=== PATIENT | male | born 1955 | race Caucasian/White ===

== ENCOUNTER → 2017-12-17 | Outpatient (REF) | payer MEDICARE, MEDICAID ==
[2017-12-17 16:23] LABS: URIC ACID 5.5 MG/DL (3.5-7.2)
== END ==
LOC: M LABDRAW1 13:52
DX: M17.12 Unilateral primary osteoarthritis, left knee (principal)
CPT/HCPCS: 84550

== ENCOUNTER → 2019-12-20 | Outpatient (REF) | payer MEDICARE, MEDICAID ==
[2019-12-20 14:29] LABS: APPEARANCE, URINE CLEAR (CLEAR); BACTERIA, URINE AUTO NEGATIVE (NEGATIVE); BILIRUBIN, URINE AUTO NEGATIVE (NEGATIVE); BLOOD, URINE BLOOD 1+ (NEGATIVE); COLOR, URINE YELLOW (YELLOW); GLUCOSE, URINE (UA) AUTO NEGATIVE (NEGATIVE); KETONE, URINE AUTO NEGATIVE (NEGATIVE); LEUKOCYTE ESTERASE, URINE AUTO NEGATIVE (NEGATIVE); MUCUS, URINE SMALL (NEGATIVE); NITRITE, URINE AUTO NEGATIVE (NEGATIVE); PROTEIN, URINE AUTO NEGATIVE (NEGATIVE); RBC, URINE AUTO 1 /HPF (0-3); SQUAMOUS EPITHELIAL CELL UR AU 0 /HPF (0-6); UROBILINOGEN, URINE AUTO 0.2 mg/dL (0.0-2.0); WBC, URINE AUTO 0 /HPF (0-3)
== END ==
LOC: M SMT 13:22
PROVIDERS: ATTEND Nurse Practitioner Women's Health
DX: R97.20 Elevated prostate specific antigen [PSA] (principal); Z79.899 Other long term (current) drug therapy
CPT/HCPCS: 81001; 87086; G0463

== ENCOUNTER → 2020-11-26 | Outpatient (CLI) | payer MEDICARE, MEDICAID ==
[~2020-11-26] MED LIST: DICL1GEL3 TOP; FLOM0.4C39 PO; GABA-845 PO; HYDR12.55 PO; LOSA25TA14 PO; METO37.5 PO; OXYC-1 PO; SIMV10TA21 PO; TRAZ-252 PO; XARE10TA PO; ZOLP5TAB PO; [UNRECOGNIZED DRUG - OTHER]
[2020-11-29 18:09] LABS: AFP TUMOR TOTAL 3.1 ng/mL (0.0-8.0); HCG SERUM TUMOR MARKER QUANT < 1 mIU/mL (0-3)
== END ==
LOC: M PLALAB 12:56
PROVIDERS: ATTEND Urology
DX: N50.811 Right testicular pain (principal); N50.812 Left testicular pain; C61 Malignant neoplasm of prostate
CPT/HCPCS: 36415; 82107; 83615; 84702; G0103; G0463

== ENCOUNTER → 2020-12-11 | Outpatient (CLI) | payer MEDICARE, MEDICAID ==
[~2020-12-11] MED LIST changes: -DICL1GEL3 TOP; -FLOM0.4C39 PO; -GABA-845 PO; -HYDR12.55 PO; -LOSA25TA14 PO; -METO37.5 PO; -OXYC-1 PO; +PROHANCE 279.3MG/ML 15ML VIAL As Ordered ONE; +PROHANCE 279.3MG/ML 5ML VIAL As Ordered ONE; -SIMV10TA21 PO; -TRAZ-252 PO; -XARE10TA PO; -ZOLP5TAB PO; -[UNRECOGNIZED DRUG - OTHER]
--- NOTE | 2020-12-11 14:10 | REP ---
INDICATION: LEFT TESTICULAR PAIN/LESION, ? MALIGNANCY. COMPARISON: Ultrasound outside institution 11/18/2020. TECHNIQUE: Multiple sequences obtained in the axial, coronal and sagittal planes prior to and following the intravenous administration of 20 mL ProHance. FINDINGS: In the superior pole of the left testicle there is a possible 5 mm nodule present. Definitive evaluation is not optimal due to its very small size. Otherwise no testicular lesion is seen bilaterally. No adenopathy or free fluid is seen in the pelvis. There is no other evidence of pelvic mass. Urinary bladder is mildly distended and grossly unremarkable. Prostate is heterogeneous. There is no evidence of inguinal hernia or anterior abdominal wall defect of the pelvis. There is mild left sacroiliitis. No other osseous abnormality is seen. IMPRESSION: Possible 5 mm nodule within the superior pole of the left testicle. Definitive evaluation is not optimal due to the very small size. No adenopathy in the pelvis. No inguinal hernia. Mild left sacroiliitis. <Electronically signed by Chucky Diego > 12/11/20 [id number]
== END ==
LOC: M RAD 10:34
PROVIDERS: ATTEND Urology
DX: M46.1 Sacroiliitis, not elsewhere classified (principal); N50.812 Left testicular pain
CPT/HCPCS: 72197; A9576

== ENCOUNTER → 2021-01-09 | Outpatient (CLI) | payer MEDICARE, MEDICAID ==
[~2021-01-09] MED LIST changes: +CIPR750T2 PO; +DICL1GEL3 TOP; +FLOM0.4C39 PO; +GABA-845 PO; +HYDR12.55 PO; +LORA1TAB4 PO; +LOSA25TA14 PO; +METO37.5 PO; +OXYC-1 PO; -PROHANCE 279.3MG/ML 15ML VIAL As Ordered ONE; -PROHANCE 279.3MG/ML 5ML VIAL As Ordered ONE; +SIMV10TA21 PO; +TRAZ-252 PO; +XARE10TA PO; +ZOLP5TAB PO; +[UNRECOGNIZED DRUG - OTHER]
--- NOTE | 2021-01-09 13:40 | RADENCPD ---
Date/Time of Encounter Date of Encounter: Jan 09, 2021 Time of Encounter: 13:27 Encounter This is a telephone procedure consultation Diagnosis: C61 prostate cancer, low risk Requesting physicians: Emanuel Medina MD Urology Procedure(s): SpaceOAR 19682 Fiducial markers 27329 Subjective: Patient is a 66 yo with low risk prostate cancer T1c Jose David 3+3=6 PSA 6.1 He has an AUA score of 16, takes flomax QHS and myrbetriq Has a history of bowel obstruction remotely Takes Xarelto Has chronic back pain NKA Meds reviewed: No contraindications to procedure noted, will hold xarelto prior to procedure BMI 40 Gland size ~40cc per MRI Assessment/plan: Good candidate for SpaceOAR and fiducial placement. He wants to move forward. Discussed rationale for procedures and decreased acute and late RT toxicity risks associated with SpaceOAR. Described procedure for placement in detail. We will have him hold his xarelto for 48 hours prior to procedure. Our next procedure dates are 01/30/21-01/31/21. Ideally placement would precede simulation by 1-2 weeks. Discussed that device bilingual sales representative may, or may not be present for the procedure. Patient agreed to the above. MARA GAMEZ MD Jan 09, 2021 13:40
== END ==
LOC: M ONCR 13:14
PROVIDERS: ATTEND General Practice
DX: C61 Malignant neoplasm of prostate (principal)

== ENCOUNTER → 2021-02-07 | Outpatient (CLI) | payer MEDICARE, MEDICAID ==
[~2021-02-07] MED LIST changes: +GABA-283 PO; -GABA-845 PO; +LIDOCAINE 2% MDV 20ML VIAL XX ONE; +LIDOCAINE VISCOUS 2% SOLN 15ML UDC XX ONE
--- NOTE | 2021-02-07 12:11 | ROOPDOC ---
[facility] Report Of Operation Report of Operation [facility] SpaceOAR & fiducial marker procedure note Name: Eric Carvalho RhiannonB: 57 Procedure diagnosis: C61.0 Prostate cancer Procedure date/time: 02/07/21 1030 Physician: Buddy Gamez MD Implant(s): Fiducials (2 seeds per needle): Qfix [id number] Lot# [id number] Exp 03/10/2024 Qty 2 SpaceOAR: [id number] Lot# [id number] Exp 08/28/22 Qty 1 Description of procedure: Informed consent for placement of SpaceOAR and fiducial marker seeds (4) was obtained pre-procedure. A timeout was completed. The patient was placed in the high lithotomy position and a rectal exam with 2% viscous lidocaine was completed. The rectal vault was empty of stool. A chlorhexidine prep of the perineal skin was completed. The trans-rectal ultrasound probe was introduced, the prostate and the rectal bulb were well visualized. 2% lidocaine was infiltrated in the skin and soft tissues of the perineum via a 23 Ga spinal needle under ultrasound guidance. 12cc of local was used. Patient tolerated the block well. Next, fiducial marker seeds were placed via pre-loaded 18 Ga needles under ultrasound guidance. 2 seeds were placed in the left anterior base and apex, respectively. 2 seeds were placed at the right posterior base and apex, respectively. A hydro-dissection of the space between the prostate and rectum was conducted by locating Denonvilliers fascia and injecting 10 cc of isotonic saline through an 18 Ga needle into the potential space there to develop a plane for SpaceOAR implant. Once the hydro-dissection was complete, the needle was withdrawn to mid-gland and the implant needle was then checked in the sagittal and transverse planes for optimal position and once verified, the SpaceOAR implant was placed. The implant was noted to have excellent positioning from base to near-apex. The needle was withdrawn and the ultrasound probe was removed from the rectum. Post procedure vital signs were WNL. The patient tolerated the procedure well without significant discomfort. EBL: 3cc Disposition: Simulation for radiation therapy will occur in the next 1-2 weeks under the direction of Dr. High at [facility]. The patient will complete antibiotic prophylaxis this evening BUDDY GAMEZ MD Feb 07, 2021 12:11
--- NOTE | 2021-02-18 14:33 | RADENCPD ---
Date/Time of Encounter Date of Encounter: February 18, 2021 Time of Encounter: 14:28 Encounter Eric called today to report he has been having scant amounts of blood with BMs and urination. This has been present for 3-4 days. He had his procedure on 02/07/21 and resumed xarelto on 02/09/21. He had no bleeding for the first several days. Now he notes 2-3 drops of BRB with defecation, no pain. He also notes in the morning 2-3 drops of BRB per urethra prior to voiding clear yellowish (not pink tinged or red) urine. This suggests to me that he has some mild post-procedural trauma, likely perpetuated by the xarelto. As the amount is not copious and he is voiding and defecating without other difficulty, I suggest he monitor this for now. It is not unusual to have minor bleeding post-procedure for up to 2 weeks even without being on a blood thinner. He agreed to watch and wait. I asked him to call me back if the bleeding worsens or fails to resolve. In that case he may need to discuss holding the blood thinner with his PCP. His simulation is on 02/24/21 with MARA Lui MD February 18, 2021 14:33
== END ==
LOC: M ONCR 10:02
PROVIDERS: ATTEND General Practice
DX: C61 Malignant neoplasm of prostate (principal)
CPT/HCPCS: 55874; 55876; A4648; C1889

== ENCOUNTER → 2021-07-21 | Outpatient (CLI) | payer MEDICARE, MEDICAID ==
[~2021-07-21] MED LIST changes: +GABA600T4 PO; -LIDOCAINE 2% MDV 20ML VIAL XX ONE; -LIDOCAINE VISCOUS 2% SOLN 15ML UDC XX ONE; +MYRB50TA PO
== END ==
LOC: M LABSMTC 11:50
PROVIDERS: ATTEND Anesthesiology
DX: Z01.812 Encounter for preprocedural laboratory examination (principal); Z20.822 Contact with and (suspected) exposure to COVID-19

== ENCOUNTER → 2022-02-05 | Outpatient (CLI) | payer MEDICARE, MEDICAID ==
[~2022-02-05] MED LIST changes: +ISOVUE-370 76% 100ML VIAL As Ordered ONE; +LOSA25TA13 PO; -LOSA25TA14 PO
== END ==
LOC: M RAD 10:17
PROVIDERS: ATTEND Otolaryngology
DX: J31.0 Chronic rhinitis (principal); R22.1 Localized swelling, mass and lump, neck; J32.9 Chronic sinusitis, unspecified; J34.1 Cyst and mucocele of nose and nasal sinus
CPT/HCPCS: 70486; 70491; Q9967

== ENCOUNTER → 2022-02-27 | Outpatient (CLI) | payer MEDICARE, MEDICAID ==
[~2022-02-27] MED LIST changes: -ISOVUE-370 76% 100ML VIAL As Ordered ONE; +PROHANCE 279.3MG/ML 15ML VIAL ONE; +PROHANCE 279.3MG/ML 5ML VIAL ONE
== END ==
LOC: M PLAIMG 10:43
PROVIDERS: ATTEND Otolaryngology
DX: D37.030 Neoplasm of uncertain behavior of the parotid salivary glands (principal); J34.1 Cyst and mucocele of nose and nasal sinus; M25.78 Osteophyte, vertebrae; M48.02 Spinal stenosis, cervical region
CPT/HCPCS: 70543; A9576

== ENCOUNTER → 2022-12-14 | Outpatient (CLI) | payer MEDICARE, MEDICAID ==
[~2022-12-14] MED LIST changes: -PROHANCE 279.3MG/ML 15ML VIAL ONE; -PROHANCE 279.3MG/ML 5ML VIAL ONE
== END ==
LOC: M RAD 13:16
PROVIDERS: ATTEND Otolaryngology
DX: J32.0 Chronic maxillary sinusitis (principal); J34.2 Deviated nasal septum

== ENCOUNTER 2023-01-14 09:32 | Observation (INO) | payer MEDICARE, MEDICAID ==
[~2023-01-14] VITALS: Ht 180.3 cm; Wt 126.0 kg
[2023-01-14] VITALS (7 sets, daily range): BP systolic 118–131; BP diastolic 76–80
[2023-01-14] MEDS ORDERED: LR 1,000 ML IV SCH ×2 (09:40→18:20)
[2023-01-14] MEDS ORDERED: ROCURONIUM BROMIDE 50MG/5ML VIAL As Ordered ONE ×3 (11:46→13:54)
[2023-01-14] MEDS ORDERED: LIDOCAINE 2% 100MG/5ML SDV (FOR ANES.) As Ordered ONE (11:46)
[2023-01-14] MEDS ORDERED: propofoL 200 MG/20 ML VIAL As Ordered ONE (11:46)
[2023-01-14] MEDS ORDERED: fentaNYL 250 MCG/5 ML INJECTION As Ordered ONE (11:47)
[2023-01-14] MEDS ORDERED: MIDAZOLAM INJ 2MG/2ML VIAL As Ordered ONE (11:47)
[2023-01-14] MEDS ORDERED: EPINEPHrine 1MG/ML INJ 30ML MD-VIAL As Ordered ONE (12:11)
[2023-01-14] MEDS ORDERED: LIDOCAINE W/EPINEPHRINE 1% 20ML VIAL As Ordered ONE (12:11)
[2023-01-14] MEDS ORDERED: INDOCYANINE GREEN 25MG VIAL (IC-GREEN) As Ordered ONE (12:11)
[2023-01-14] MEDS ORDERED: METHYLENE BLUE 0.5% (5MG/ML) 10 ML AMP (PROVAYBLUE) As Ordered ONE (12:13)
[2023-01-14] MEDS ORDERED: LACRILUBE (AKWA TEARS) OPHTH OINT 3.5GM As Ordered ONE (12:16)
[2023-01-14] MEDS ORDERED: ACETAMINOPHEN 1000MG 100ML IV BAG As Ordered ONE (12:44)
[2023-01-14] MEDS ORDERED: KETOROLAC 60MG 2ML VIAL As Ordered ONE (12:44)
[2023-01-14] MEDS ORDERED: ONDANSETRON 4MG 2ML VIAL As Ordered ONE (12:44)
[2023-01-14] MEDS ORDERED: ePHEDrine SULFATE 25 MG/5 ML(5MG/ML) SYRINGE As Ordered ONE (12:53)
[2023-01-14] MEDS ORDERED: SUGAMMADEX SODIUM 500 MG/5 ML VIAL (BRIDION) As Ordered ONE (13:37)
[2023-01-14] MEDS ORDERED: ONDANSETRON 4MG 2ML VIAL IV PRN (15:00)
[2023-01-14] MEDS ORDERED: oxyCODONE 5MG TAB PO PRN (15:00)
[2023-01-14] MEDS ORDERED: MORPHINE 2 MG/ML 1ML VIAL IV PRN (15:00)
[2023-01-14] MEDS ORDERED: fentaNYL 100 MCG/2 ML INJECTION IV PRN (15:00)
[2023-01-14] MEDS ORDERED: MAALOX 30 ML SUSP *UDC PO PRN (16:00)
[2023-01-14] MEDS ORDERED: ACETAMINOPHEN TAB 650MG DOSE (2X325MG) PO PRN (16:00)
[2023-01-14] MEDS ORDERED: MOM 30ML SUSPENSION UDC PO PRN (16:00)
[2023-01-14 19:43] LABS: BASO % 0.3 % (0.0-1.0); EOS % 0.1 % (0.0-3.0); HEMATOCRIT 43.3 % (42.0-52.0); HEMOGLOBIN 14.5 g/dl (13.5-17.5); LYMPH # 0.8 10^3/uL (1.5-5.0); LYMPH % 9.4 % (24.0-44.0); MEAN CORPUSCULAR HEMOGLOBIN 30.5 pg (27.0-33.0); MEAN CORPUSCULAR HGB CONC 33.5 g/dl (32.0-36.5); MONO # 0.1 10^3/uL (0.0-0.8); MONO % 1.1 % (2.0-8.0); NEUTROPHILS # 7.9 10^3/uL (1.5-8.5); NEUTROPHILS % 88.1 % (36.0-66.0); PLATELET COUNT, AUTOMATED 233 10^3/uL (150-450); RED BLOOD COUNT 4.76 10^6/uL (4.30-6.10); WHITE BLOOD COUNT 8.9 10^3/uL (4.0-10.0)
[2023-01-14] MEDS: DOCUSATE SODIUM 100MG CAPSULE PO SCH (20:00)
[2023-01-14] MEDS: LACTOBACILLUS ACIDOPHILUS CAP (BACID) PO SCH (20:00)
[2023-01-14 20:17] LABS: CALCIUM LEVEL 9.1 MG/DL (8.3-10.6); CREATININE FOR GFR 1.45 MG/DL (0.70-1.30); GLOMERULAR FILTRATION RATE 51.7 (>49); MAGNESIUM LEVEL 1.8 MG/DL (1.8-2.4); POTASSIUM SERUM 3.8 MMOL/L (3.5-5.1)
[2023-01-14] MEDS: AUGMENTIN 875 MG TAB PO SCH (20:56)
[2023-01-14] MEDS ORDERED: SIMVASTATIN 10 MG TAB PO SCH (21:00)
[2023-01-14] MEDS ORDERED: traZODone 50 MG TAB PO SCH (21:00)
[2023-01-14] MEDS ORDERED: GABAPENTIN 300 MG CAP PO SCH (21:00)
[2023-01-14] MEDS ORDERED: HYDR-4514 PO (22:23)
[2023-01-14] MEDS ORDERED: METO1TAB32 PO (22:23)
[2023-01-14] MEDS ORDERED: LOSA100T45 PO (22:23)
[2023-01-14] MEDS ORDERED: SIMV20TA22 PO (22:23)
[2023-01-14] MEDS ORDERED: SALI0.6530 (22:23)
[2023-01-14] MEDS ORDERED: NITR4TASL SL (22:23)
[2023-01-14] MEDS ORDERED: HYDR12.55 PO (22:23)
[2023-01-14] MEDS ORDERED: QUET1TAB17 PO (22:23)
[2023-01-14] MEDS ORDERED: XARE20TA PO (22:23)
[2023-01-14] MEDS ORDERED: HOME MED LIST COMPLETE! XX SCH (22:30)
[2023-01-14] MEDS ORDERED: ANEXSIA, NORCO 7.5MG/325MG TABLET(HYDROCODONE/APAP) PO PRN (23:25)
[2023-01-15 03:07] VITALS: BP 136/80
[2023-01-15 05:21] VITALS: BP 155/92
[2023-01-15 06:00] VITALS: BP 132/72
[2023-01-15 06:55] LABS: BASO % 0.1 % (0.0-1.0); HEMATOCRIT 43.4 % (42.0-52.0); HEMOGLOBIN 14.5 g/dl (13.5-17.5); LYMPH # 1.2 10^3/uL (1.5-5.0); LYMPH % 8.2 % (24.0-44.0); MEAN CORPUSCULAR HEMOGLOBIN 30.3 pg (27.0-33.0); MEAN CORPUSCULAR HGB CONC 33.4 g/dl (32.0-36.5); MEAN CORPUSCULAR VOLUME 90.8 fl (80.0-96.0); MONO % 6.6 % (2.0-8.0); NEUTROPHILS # 12.3 10^3/uL (1.5-8.5); NEUTROPHILS % 84.1 % (36.0-66.0); PLATELET COUNT, AUTOMATED 239 10^3/uL (150-450); RED BLOOD COUNT 4.78 10^6/uL (4.30-6.10); WHITE BLOOD COUNT 14.7 10^3/uL (4.0-10.0)
[2023-01-15 07:20] LABS: CALCIUM LEVEL 9.2 MG/DL (8.3-10.6); CREATININE FOR GFR 1.3 MG/DL (0.70-1.30); GLOMERULAR FILTRATION RATE 58.6 (>49); MAGNESIUM LEVEL 1.9 MG/DL (1.8-2.4); POTASSIUM SERUM 4.2 MMOL/L (3.5-5.1)
[2023-01-15] MEDS: AUGMENTIN 875 MG TAB PO SCH (08:23)
[2023-01-15] MEDS: LACTOBACILLUS ACIDOPHILUS CAP (BACID) PO SCH (08:23)
[2023-01-15] MEDS: DOCUSATE SODIUM 100MG CAPSULE PO SCH (08:24)
[2023-01-15] MEDS ORDERED: OXYMETAZOLINE 0.05% NASAL SPRAY (AFRIN) PRN (08:25)
[2023-01-15] MEDS ORDERED: NITROGLYCERIN 0.4MG SUBL TABLET SL PRN (08:45)
[2023-01-15] MEDS ORDERED: LOSARTAN 25 MG TAB PO SCH (09:00)
[2023-01-15] MEDS ORDERED: hydroCHLOROthiazide 12.5 MG CAPSULE PO SCH (09:00)
[2023-01-15] MEDS ORDERED: METOPROLOL TART 12.5 MG PER 1/2 TAB PO SCH (09:00)
[2023-01-15] MEDS ORDERED: METOPROLOL TART 25 MG TABLET PO SCH (09:00)
[2023-01-15 09:07] VITALS: BP 119/76
[2023-01-15 10:00] VITALS: BP 124/82
[2023-01-15] MEDS ORDERED: AMOX875T2 PO (12:22)
[2023-01-15] MEDS ORDERED: OXYM05SP (12:22)
[2023-01-15] MEDS ORDERED: RISATAB3 PO (12:22)
[2023-01-15] MEDS ORDERED: XARE20TA PO (12:22)
[2023-01-15] MEDS ORDERED: SIMVASTATIN 20 MG TAB PO SCH (21:00)
[2023-01-15] MEDS ORDERED: QUEtiapine FUMARATE 25 MG TAB PO SCH (21:00)
== END 2023-01-15 14:34 | disposition home or self-care (01) ==
LOC: M SDC 09:32 → M MSPAV 09:33 → M SDC 20:38
PROVIDERS: ADMIT Internal Medicine; ATTEND Internal Medicine
DX: J34.2 Deviated nasal septum (principal); R06.83 Snoring; J32.0 Chronic maxillary sinusitis; J32.2 Chronic ethmoidal sinusitis; I10 Essential (primary) hypertension; E78.5 Hyperlipidemia, unspecified; K21.9 Gastro-esophageal reflux disease without esophagitis; F32.A Depression, unspecified; F17.220 Nicotine dependence, chewing tobacco, uncomplicated; Z85.46 Personal history of malignant neoplasm of prostate; Z92.3 Personal history of irradiation; Z86.711 Personal history of pulmonary embolism; Z86.718 Personal history of other venous thrombosis and embolism; Z79.01 Long term (current) use of anticoagulants; Z79.899 Other long term (current) drug therapy; G47.33 Obstructive sleep apnea (adult) (pediatric)
CPT/HCPCS: 30520; 31254; 31267; 36415; 61782; 80048; 83735; 84145; 85025; 88300; 88305; C2625; G0378; J0131; J0171; J1100; J1885; J2250; J2405; J3010; Q9968

== ENCOUNTER → 2024-02-23 | Outpatient (CLI) | payer MEDICARE, MEDICAID ==
[~2024-02-23] MED LIST changes: +AMOX875T2 PO; +DICL100G10 TOP; -DICL1GEL3 TOP; -GABA-283 PO; +GABA-284 PO; +HYDR-4514 PO; +LORA1TAB23 PO; -LORA1TAB4 PO; +LOSA100T46 PO; +METO1TAB32 PO; +NITR4TASL SL; +OXYM05SP; +QUET1TAB17 PO; +RISATAB3 PO; +SIMV20TA22 PO; +SODI88SP; +XARE20TA PO
== END ==
LOC: M SLEEP 20:00
PROVIDERS: ATTEND Physician Assistant
DX: G47.33 Obstructive sleep apnea (adult) (pediatric) (principal)